=== PATIENT | female | born 1995 | race Caucasian/White ===

== ENCOUNTER 2023-10-09 20:00 | Emergency (ER) | payer SELFPAY ==
[~2023-10-09] VITALS: Ht 157.5 cm; Wt 47.0 kg
[2023-10-09 20:02] VITALS: BP 124/78; TEMP 98.5; O2SAT 99
[2023-10-09 20:04] VITALS: PULSE 88; RESP 16
[2023-10-09] MEDS ORDERED: ACETAMINOPHEN 325MG TABLET ONE (21:41)
[2023-10-09] MEDS: ACETAMINOPHEN 325MG TABLET PO ONE (21:43)
== END 2023-10-09 22:00 | disposition left against medical advice (07) ==
LOC: ER 20:00
DX: S00.212A Abrasion of left eyelid and periocular area, initial encounter (principal); Z98.890 Other specified postprocedural states; Y08.89XA Assault by other specified means, initial encounter; Y93.89 Activity, other specified; Y92.89 Other specified places as the place of occurrence of the external cause; Y99.8 Other external cause status
CPT/HCPCS: 81025; 99282

== ENCOUNTER 2023-11-24 03:42 | Emergency (ER) | payer SELFPAY ==
[~2023-11-24] VITALS: Ht 154.9 cm; Wt 44.5 kg
[2023-11-24 03:47] VITALS: BP 109/71; PULSE 96; RESP 16; TEMP 98.3; O2SAT 98
== END 2023-11-24 07:13 | disposition home or self-care (01) ==
LOC: ER 03:42
DX: M79.652 Pain in left thigh (principal); Z53.21 Procedure and treatment not carried out due to patient leaving prior to being seen by health care provider